=== PATIENT | male | born 1945 | race Caucasian/White ===

== ENCOUNTER 2024-08-14 13:54 | Emergency (ER) | payer MEDICARE, OTHER, SELFPAY ==
[2024-08-14 14:06] VITALS: BP 135/92
[2024-08-14 14:36] LABS: % Basophils 0.4 % (0-2); % Eosinophils 2.7 % (0-6); % Immature Granulocytes 0.4 % (0-0.5); % Monocytes 6.8 % (1.7-9.3); % Neutrophils 74.7 % (42.2-75.2); Absolute Eosinophils 0.2 10^3/uL (0-0.7); Absolute Lymphocytes 1.3 10^3/uL (1.2-3.4); Absolute Monocytes 0.6 10^3/uL (0.1-0.6); Absolute Neutrophils 6.4 10^3/uL (1.4-6.5); Hematocrit 36.9 % (39.0-52.0); Hemoglobin 12.2 g/dL (13.0-18.0); Mean Corp Hgb Conc. 33.1 g/dL (33.0-37.0); Mean Corpuscular Hgb 29.7 pg (27.0-31.0); Mean Corpuscular Volume 89.8 fL (80.0-94.0); Mean Platelet Volume 10.2 fL (7.4-10.4); Nucleated Red Blood Cells % 0 % (-); Platelet Count 180 10^3/uL (130-400); Red Blood Cell Count 4.11 10^6/uL (4.70-6.10); Red Cell Dist. Width 13.7 % (11.5-14.5); White Blood Cell Count 8.5 10^3/uL (4.8-10.8)
[2024-08-14 14:48] LABS: ALT (SGPT) 21 U/L (0-50); AST (SGOT) 19 U/L (17-59); Albumin 4.1 g/dl (3.5-5.0); Alkaline Phosphatase 126 U/L (38-126); Blood Urea Nitrogen 26 mg/dl (9-20); Calcium 8.2 mg/dl (8.4-10.2); Carbon Dioxide 30 mmol/L (22-30); Chloride 100 mmol/L (98-107); Glucose 171 mg/dl (70-99); Potassium 4.5 mmol/L (3.5-5.1); Sodium 138 mmol/L (135-145); Total Bilirubin 0.7 mg/dl (0.2-1.3); Total Protein 6.6 g/dl (6.3-8.2); eGFR 26.44
--- NOTE | 2024-08-14 15:44 | ED.GENMED ---
History of Present Illness
General
Chief Complaint: Fall
Source: patient and family
Exam Limitations: none
Time Seen by Provider: 08/14/24 15:28
History of Present Illness
History of Present Illness:
79yoM with a history of coronary artery disease, hypertension, hyperlipidemia, CKD, type 2 diabetes with neuropathy presenting with his daughter for evaluation of multiple falls. Patient reports multiple falls within the past week. He also fell
multiple times yesterday. He struck his head during one of the falls but denies any loss of consciousness. Daughter states he has been more confused and has been hallucinating since the head injury. She states he is talking about robbers coming
to get him. This is new over the past 2 days. Patient denies any headache, neck pain, vomiting. He is having intermittent dizziness primarily with position changes. Patient states he is only here because his daughter made him come. Patient
currently lives at home with his . He does have a caregiver and uses a walker for ambulation. Patient previously participated in physical therapy and states it was a 'waste of time.'
Phy Exam
Physical Exam
Physical Exam:
Patient refusing to get undressed for exam.
General Physical Exam
General Presentation: well appearing and no apparent distress
General age: appears stated age
General Skin: warm and dry
General Habitus: normal
General Mental: alert
ENT Exam
ENT Exam: normocephalic
Additional ENT: No external signs of head trauma. No C spine tenderness.
Cardiovascular Exam
Cardiovascular Exam: regular rate/rhythm
Pulmonary Exam
Pulmonary Exam: lungs clear, no respiratory distress, no rales, no crackles and no rhonchi
Neurological Exam
Neurological Exam: alert and other (Patient tangential. Oriented to person, place, time, and situation. )
Skin Exam
Skin Exam: normal color and warm/dry
Psychiatric Exam
Psychiatric Exam: normal mood/affect
Course
Orders/Labs/Results
Orders:
Orders
08/14/24 14:23
Complete Blood Count/With Diff Urgent
Comprehensive Metabolic Panel Urgent
08/14/24 14:27
CT Cervical Spine W/o Iv Contr Urgent
Comment:
Reason For Exam: fall
CT Head W/o Iv Contrast Urgent
Comment:
Reason For Exam: fall
08/14/24 15:44
Electrocardiogram (*1) Urgent
Reason for Study: Vertigo / Dizzy
EKG- Treatment ONCE
08/14/24 16:48
Urinalysis Reflex To Culture Urgent
Date Specimen was Collected: 08/14/24
Time Specimen was Collected: 16:47
Urine Microscopic Reflex Cult Urgent
Abnormal Lab Results
08/14/24 08/14/24
14:23 16:48
RBC 4.11 L 10^6/uL
(4.70-6.10)
Hgb 12.2 L g/dL
(13.0-18.0)
Hct 36.9 L %
(39.0-52.0)
Lymphocytes % 15.0 L %
(20.5-51.1)
BUN 26 H mg/dl
(9-20)
Creatinine 2.4 H mg/dL
(0.7-1.3)
Glucose 171 H mg/dl
(70-99)
Calcium 8.2 L mg/dl
(8.4-10.2)
Leukocyte Esterase Rfl Trace A
(Negative)
Urine RBC 3-6 A /HPF
(0-2)
Urine Glucose Trace A
(Negative)
08/14/24 14:23
08/14/24 14:23
Vital Signs
Initial and Last Documented VS:
Initial Vital Signs
Temp Pulse Resp BP Pulse Ox
97.5 F 50 18 135/92 92
08/14/24 14:06 08/14/24 14:06 08/14/24 14:06 08/14/24 14:06 08/14/24 14:06
Last Documented Vital Signs
Temp Pulse Resp BP Pulse Ox
97.5 F 51 17 156/73 96
08/14/24 14:06 08/14/24 17:08 08/14/24 17:08 08/14/24 17:08 08/14/24 17:08
MDM/Problems Addressed
Differential Diagnosis Includes:
79yoM here with multiple falls over the past week. Also having increasing confusion and hallucinations over the past 2 days. VSS. He is awake and alert on exam. No external signs of head trauma. He is oriented to person, place, and time.
Differential diagnosis includes but is not limited to: failure to thrive, concussion, intracranial hemorrhage, UTI, polypharmacy, psychiatric, dementia
Initial ED plan: CBC and CMP obtained in triage. Creatinine 2.4. No prior labs to compare to. Patient states this is 'good for him.' He has baseline CKD and follows with nephrology as an outpatient. Both patient and daughter state this is not why
there are here and are not concerned about this. Will check CT head/cervical spine, EKG, and UA.
*EKG
Interpreted by ED Provider?: Yes
EKG Intrepretation Date: 08/14/24
Heart Rate: 51
Rate: bradycardiac
Rhythm: sinus
[place]: normal axis
QRS Pattern: right bundle branch block (incomplete)
Ischemia: no ischemia
*Critical Care Note
Total Time (30-74mins, 75-104mins- exclusive of procedures): Not Applicable
Update Note
Update Note:
CT head/cervical spine negative for traumatic injuries. UA bland without signs of infection. EKG shows NSR without ischemic changes. Recommended hospitalization due to new onset confusion. Patient is adamantly refusing admission stating he 'would
rather ' than stay in the hospital. He is A&Ox4. No grounds to take away his rights at this time. Patient able to ambulate in the hallway with his walker. Advised close f/u with his PCP and his neurologist. He was encouraged to return to the ER
at any time or with any worsening symptoms. Patient left in stable condition with his daughter.
ED Attending Note
-
Portions of this chart may have been created with voice recognition software.� Occasional wrong word or��sound alike� substitutions may have occurred due to the inherent limitations of voice recognition software.
Discharge Plan
Departure
Patient Disposition: Against Medical Advice
Date of Disposition: 08/14/24
Time of Disposition: 17:23
Discharge Problem:
Visual hallucinations, Falls frequently, Closed head injury
Instructions: Delirium (confusion), Fall Prevention for Older Adults
Referrals:
Reji Cole MD [Family Provider] -
Activity Restrictions/Additional Instructions:
Please call your family doctor and neurologist tomorrow to schedule follow-up appointments.
Return to the ER immediately with any new or worsening symptoms.
Interventions
Interventions:
*Risk Screen - Suicide Last Done: 08/14/24 14:06
*General Assessment Last Done: 08/14/24 14:06
*Neglect/Abuse Screening Last Done: 08/14/24 14:06
ED- Fall Risk Assessment Last Done: 08/14/24 18:00
*ED COVID-19 Vaccine History Last Done: 08/14/24 18:00
*Nursing Disposition Last Done: 08/14/24 18:00
ED-Musculoskeletal Assessment Last Done: 08/14/24 18:00
ED- Neurological Assessment Last Done: 08/14/24 18:00
ED-Skin Assessment Last Done: 08/14/24 18:00
Discharge Date and Time
Discharge Date/Time: 08/14/24 18:00
Print Language: RUSSIAN
[2024-08-14 17:08] VITALS: BP 156/73
[2024-08-14 17:08] LABS: Urine Albumin Trace (Neg - Trace); Urine Bilirubin Negative (Negative); Urine Color Yellow; Urine Glucose Trace (Negative); Urine Ketone Negative (Negative); Urine Leukocyte Trace (Negative); Urine Nitrite Negative (Negative); Urine Occult Blood Negative (Negative); Urine Urobilinogen Negative (Neg - 1+)
[2024-08-14 17:10] LABS: Urine Character Clear (Clear)
[2024-08-14 17:45] LABS: Urine Hyaline Cast >15 /LPF (0-2); Urine Squamous Cell 0-2 /LPF (Few)
== END 2024-08-14 18:00 | disposition left against medical advice (07) ==
LOC: EMR 13:54
PROVIDERS: Emergency Medicine; Physician Assistant; EMERGENCY PHYSICIAN Emergency Medicine; FAMILY PHYSICIAN Internal Medicine
DX: S09.90XA Unspecified injury of head, initial encounter (principal); W19.XXXA Unspecified fall, initial encounter; R29.6 Repeated falls; I12.9 Hypertensive chronic kidney disease with stage 1 through stage 4 chronic kidney disease, or unspecified chronic kidney disease; E11.22 Type 2 diabetes mellitus with diabetic chronic kidney disease; N18.9 Chronic kidney disease, unspecified; E11.40 Type 2 diabetes mellitus with diabetic neuropathy, unspecified; I25.10 Atherosclerotic heart disease of native coronary artery without angina pectoris; E78.5 Hyperlipidemia, unspecified
CPT/HCPCS: 99284; 70450; 72125; 80053; 81003; 81015; 85025; 93005